=== PATIENT | male | born 1995 | race Caucasian/White ===

== ENCOUNTER 2021-04-02 00:48 | Emergency (ER) | payer SELFPAY ==
[2021-04-02 00:56] VITALS: BP 126/86; PULSE 96; TEMP 98.5; BMI 25.7
[2021-04-02] MEDS ORDERED: DIPHTH,PERTUSS(ACELL),TET 0.5 ML DISP.SYRIN IM ONE ×2 (02:09)
== END 2021-04-02 02:14 | disposition home or self-care (01) ==
LOC: FER 00:48
PROC: 3E0234Z Introduction of Serum, Toxoid and Vaccine into Muscle, Percutaneous Approach (ICD-10-PCS; principal; 2021-04-02)
DX: S01.83XA Puncture wound without foreign body of other part of head, initial encounter (principal)
CPT/HCPCS: 70450-TC; 71046-TC-FY; 72170-TC-FY; 73030-TC-RT-FY; 90715; 99284-25

== ENCOUNTER 2021-05-01 13:37 | Emergency (ER) | payer SELFPAY ==
[2021-05-01 13:44] VITALS: BP 107/63; PULSE 83; TEMP 98.7; BMI 25.0
== END 2021-05-01 13:55 | disposition home or self-care (01) ==
LOC: FER 13:37
DX: Z48.02 Encounter for removal of sutures (principal)
CPT/HCPCS: 99281-25